=== PATIENT | female | born 1950 | race Caucasian/White ===

== ENCOUNTER 2021-11-07 05:24 | Day surgery (SDC) | payer MEDICARE, BC ==
[2021-11-01 17:22] LABS: BASOPHILS % (AUTO) 0.6 % (0-1); EOSINOPHILS # (AUTO) 0.1 X10'3 (0-0.9); EOSINOPHILS % (AUTO) 1.2 % (0-6); LYMPHOCYTES # (AUTO) 1.8 X10'3 (1.1-4.8); LYMPHOCYTES % (AUTO) 23.9 % (21-51); MEAN CORPUSCULAR HGB CONC 34.2 g/dL (33.0-36.5); MEAN CORPUSCULAR VOLUME 90.5 FL (78-98); MONOCYTES # (AUTO) 0.7 X10'3 (0-0.9); MONOCYTES % (AUTO) 9.1 % (2-12); NEUTROPHILS % (AUTO) 65.2 % (42-75); PRE OP HEMATOCRIT 42.2 % (35.0-45.0); PRE OP HEMOGLOBIN 14.4 g/dL (12.0-16.0); PRE OP PLATELET COUNT 279 X10'3 (140-440); RED BLOOD COUNT 4.66 X10'6 (4.20-5.60); RED CELL DISTRIBUTION WIDTH 14.8 % (11.5-14.5)
[2021-11-01 17:31] LABS: ALBUMIN 3.9 G/DL (3.4-5.0); ALBUMIN/GLOBULIN RATIO 1.1 (1.1-1.5); ALKALINE PHOSPHATASE 110 IU/L (46-116); BLOOD UREA NITROGEN 23 MG/DL (7-18); CALCIUM 9.5 MG/DL (8.5-10.1); CHLORIDE 105 MMOL/L (99-107); PRE OP ALT 27 U/L (30-65); PRE OP ANION GAP 10 (8-16); PRE OP AST 21 U/L (10-37); PRE OP BILIRUB, TOTAL 0.4 MG/DL (0.0-1.0); PRE OP GLUCOSE 99 MG/DL (70-104); PRE OP POTASSIUM 4.1 MMOL/L (3.4-5.1); PRE OP SODIUM 143 MMOL/L (135-145); TOTAL CARBON DIOXIDE 28.1 MMOL/L (24-32); TOTAL PROTEIN 7.6 G/DL (6.4-8.2); eGFR 55 ML/MIN
[~2021-11-07] VITALS: Ht 162.6 cm; Wt 106.1 kg
[2021-11-07] VITALS (21 sets, daily range): BP systolic 83–117; BP diastolic 44–68
[~2021-11-07 05:24] MED LIST: ALB0.5UD IH; APIX2.5T PO; BECL10.62 INH; BUDE10.2 INH; FLUT16SP26 NAS; MELO-102 PO
[2021-11-07] MEDS ORDERED: famotidine 20mg tablet PO ONE (05:30)
[2021-11-07] MEDS ORDERED: acetaminophen 325mg tablet PO ONE (05:30)
[2021-11-07] MEDS ORDERED: celeCOXIB 100mg capsule PO ONE (05:30)
[2021-11-07] MEDS ORDERED: cefazolin/dext.iso 2gm/50ml IV ONE (05:30)
[2021-11-07] MEDS ORDERED: vancomycin 1,500 MG in NS 300ml IV soln IV ONE (05:30)
[2021-11-07] MEDS ORDERED: gabapentin 300mg capsule PO ONE (05:30)
[2021-11-07] MEDS ORDERED: metoclopramide 5 mg/ml inj IV ONE (05:30)
[2021-11-07] MEDS ORDERED: oxyCODONE SR 10mg (sust. release) tab -2 tabs (20mg) PO ONE (05:30)
[2021-11-07] MEDS ORDERED: LIDOcaine 1% (10mg/ml) 2ml vial ONE (05:51)
[2021-11-07] MEDS: ringers solution, lacted 1,000 ML IV SCH ×2 (06:07→10:49)
[2021-11-07] MEDS ORDERED: albuterol 2.5 MG/3 ML nebule NEB PRN (06:35)
[2021-11-07] MEDS ORDERED: fluticasone nasal spray 16GM bottle NS PRN (06:35)
[2021-11-07] MEDS ORDERED: diphenhydrAMINE 25mg capsule PO PRN ×2 (06:35)
[2021-11-07] MEDS ORDERED: HYDROmorphone inj. 0.5 MG/0.5 ML DISP.SYRIN IV PRN (06:35)
[2021-11-07] MEDS ORDERED: HYDROmorphone 1 mg/ml syringe IV PRN (06:35)
[2021-11-07] MEDS ORDERED: acetaminophen 325mg tablet PO PRN (06:35)
[2021-11-07] MEDS ORDERED: bisacodyl 10mg suppository rectal RC PRN (06:35)
[2021-11-07] MEDS ORDERED: magnesium hydroxide 30ml (MOM) UD suspension PO PRN (06:35)
[2021-11-07] MEDS ORDERED: ketorolac trometh. 30mg/ml inj. ONE (06:37)
[2021-11-07] MEDS ORDERED: epiNEPHrine 1 mg/ml inj ONE (06:38)
[2021-11-07] MEDS ORDERED: vancomycin 1,000mg inj ONE (06:38)
[2021-11-07] MEDS ORDERED: cloNIDine hcl/PF 100mcg/ml inj ONE (06:38)
[2021-11-07] MEDS ORDERED: ROPIVAcaine 0.5% (5mg/ml) 30ml vial ONE ×3 (06:38→07:37)
[2021-11-07 06:53] LABS: APTT 25 SECONDS (22-32)
[2021-11-07] MEDS ORDERED: fentaNYL/PF 50MCG/1 ML 2ML syringe ONE (06:59)
[2021-11-07] MEDS ORDERED: MIDAZolam 1mg/ml 10ml vial ONE (07:00)
[2021-11-07] MEDS ORDERED: ringers solution, lacted 1,000 ML IV SCH (07:40)
[2021-11-07] MEDS ORDERED: hydrALAZINE 20mg/ml inj. IV PRN (07:40)
[2021-11-07] MEDS ORDERED: ondansetron/PF 4mg/2ml inj IV PRN (07:40)
[2021-11-07] MEDS ORDERED: HYDROmorphone/PF 0.2 MG/ML SYRINGE IV PRN ×2 (07:40)
[2021-11-07] MEDS ORDERED: fentaNYL/PF 50MCG/1 ML 2ML syringe IV PRN ×2 (07:40)
[2021-11-07] MEDS ORDERED: labetalol 20mg/4ml (5mg/ml) syringe IV PRN (07:40)
[2021-11-07] MEDS ORDERED: non-formulary drug (Beclomethasone Dipropionate (Qvar Redihaler) 2 PUFFS) INH SCH (08:00)
[2021-11-07] MEDS ORDERED: non-formulary drug (Budesonide/Formoterol Fumarate (Symbicort 160-4.5 Mcg Inhaler) 2 PUFFS INH SCH (08:00)
--- NOTE | 2021-11-07 09:05 | NUR ---
Received from OR via BED, accompanied by Anesthesiologist and report given by Anesthesiologist. PATIENT WAKING UP, NO S/S OF PAIN, V/S WNL, SCD ON, 20G TO LUE, JOLENE drsg to LEFT KNEE CDI W/ ONQ AT 2ML/HR. SENSATIONS T9
--- NOTE | 2021-11-07 09:53 | NUR ---
RECEIVED REPORT FROM ISA SALVADOR. AWAITING PATIENT ARRIVAL, ROOM IS READY.
[2021-11-07] MEDS ORDERED: ROPIVAcaine 0.2%/PF PUMP/bolus 545 ML ADDCANAL SCH (10:00)
[2021-11-07] MEDS ORDERED: ROPIVAcaine 0.2% (10 MG/5 ML) BOLUS INJECTION ADDCANAL PRN (10:00)
--- NOTE | 2021-11-07 10:05 | NUR ---
PATIENT a&ox4, denies PAIN, V/S WNL, SCD ON, 20G TO LUE, JOLENE drsg to LEFT KNEE CDI W/ ONQ AT 2ML/HR. SENSATIONS T9. taken to surgical with all belongings and hooked up to monitors in room and report given to rn who has taken over patient care.
--- NOTE | 2021-11-07 10:10 | NUR ---
PATIENT ARRIVED TO THE FLOOR. BP'S SOFT IN THE 90'S. LAB SUPPORT TECHNICIAN SAID THIS IS WHERE SHE HAS BEEN AT. ONQ SET TO 4.
[2021-11-07] MEDS: potassium cl 20mEq in 1/2 NS 1,000 ML IV SCH ×2 (10:50→14:53)
[2021-11-07] MEDS: apixaban 2.5mg tablet PO SCH ×2 (10:50→21:20)
[2021-11-07] MEDS: multivitamins, therapeutics tablet PO SCH (10:50)
[2021-11-07] MEDS: gabapentin 300mg capsule PO SCH ×3 (10:50→21:00)
[2021-11-07] MEDS: ascorbic acid 500mg tablet PO SCH ×2 (10:51→21:20)
[2021-11-07] MEDS ORDERED: tranexamic acid inj. 1,000 MG in 0.7% saline 100 ML PMX IV ONE (11:10)
[2021-11-07] MEDS ORDERED: tranexamic acid 1gm/0.7% sal. 100 ML IV ONE (12:00)
--- NOTE | 2021-11-07 12:05 | NUR ---
first dose of tranexamic acid to be given immediately after surgery was sent to OR. advised from pharmacy to give 1200 dose meant for 3hrs post op.
[2021-11-07] MEDS: albuterol 2.5 MG/3 ML nebule NEB SCH ×2 (15:00→20:15)
--- NOTE | 2021-11-07 16:05 | NUR ---
Telephone call to MD regarding cefazolin ordered and cephalexin allergy listed. He stated that patient received this already pre-operatively and it is okay to give.
[2021-11-07] MEDS: cefazolin/dext.iso 2gm/50ml 50 ML IV SCH (16:29)
[2021-11-07] MEDS: oxyCODONE/APAP 10/325mg tablet PO PRN ×2 (17:33→22:28)
--- NOTE | 2021-11-07 18:18 | NUR ---
Problems reprioritized. Patient report given, questions answered & plan of care reviewed with ISA Martínez.
[2021-11-07] MEDS: ondansetron/PF 4mg/2ml inj IV PRN (19:22)
[2021-11-07] MEDS: budesonide 0.5mg/2ml UD nebule IH SCH (20:15)
[2021-11-07] MEDS ORDERED: sennosides 8.6mg tablet PO SCH (21:00)
[2021-11-07] MEDS ORDERED: normal saline 1000ml 1,000 ML IV ONE (21:05)
[2021-11-08] VITALS: BP 88/42
[2021-11-08] MEDS: potassium cl 20mEq in 1/2 NS 1,000 ML IV SCH ×2 (01:08→06:35)
[2021-11-08] MEDS: cefazolin/dext.iso 2gm/50ml 50 ML IV SCH (01:08)
[2021-11-08] MEDS: albuterol 2.5 MG/3 ML nebule NEB SCH ×2 (03:00→09:00)
[2021-11-08] MEDS: oxyCODONE/APAP 10/325mg tablet PO PRN ×3 (03:06→13:43)
[2021-11-08 04:00] VITALS: BP 128/50
--- NOTE | 2021-11-08 06:18 | NUR ---
Patient in room [facility]. I have received report from Jay myers and had the opportunity to ask questions and assume patient care.
[2021-11-08 06:32] LABS: BASOPHILS % (AUTO) 0.3 % (0-1); EOSINOPHILS % (AUTO) 0.4 % (0-6); HEMATOCRIT 33.1 % (35.0-45.0); HEMOGLOBIN 11.1 g/dl (12.0-16.0); LYMPHOCYTES # (AUTO) 1.1 X10'3 (1.1-4.8); LYMPHOCYTES % (AUTO) 11.8 % (21-51); MEAN CORPUSCULAR HEMOGLOBIN 30.8 PG (27.0-31.0); MEAN CORPUSCULAR HGB CONC 33.5 g/dL (33.0-36.5); MONOCYTES % (AUTO) 10.4 % (2-12); NEUTROPHILS # (AUTO) 7.3 X10'3 (1.8-7.7); NEUTROPHILS % (AUTO) 77.1 % (42-75); PLATELET COUNT 202 X10'3 (140-440); WHITE BLOOD COUNT 9.5 X10'3 (4.5-11.0)
[2021-11-08] MEDS: apixaban 2.5mg tablet PO SCH (07:07)
[2021-11-08] MEDS: ascorbic acid 500mg tablet PO SCH (07:07)
[2021-11-08] MEDS: multivitamins, therapeutics tablet PO SCH (07:08)
[2021-11-08] MEDS: gabapentin 300mg capsule PO SCH ×2 (07:18→13:00)
[2021-11-08 07:53] LABS: ANION GAP 9 (8-16); CHLORIDE 110 MMOL/L (99-107); SODIUM 142 MMOL/L (135-145); TOTAL CARBON DIOXIDE 23.1 MMOL/L (24-32)
[2021-11-08 08:10] VITALS: BP 93/42
[2021-11-08] MEDS: budesonide 0.5mg/2ml UD nebule IH SCH (09:00)
[2021-11-08] MEDS: ondansetron/PF 4mg/2ml inj IV PRN (10:37)
--- NOTE | 2021-11-08 11:04 | NUR ---
called kj SONG due to pt having low bps 94/33. pt is not symptomatic and had low bps when she came in received a bolus yesterday. she is not on any bp medications. kj said to educate on drinking and being aware if feeling dizzy. will educate pt on this topic upon discharging.
[2021-11-08 14:07] VITALS: BP 94/33
--- NOTE | 2021-11-08 14:28 | NUR ---
pt is stable for discharge, all discharge info gone over with pt with no further questions, belongings sent with pt, iv dc and cannula intact, pt dressings were clean and dry, and new ON q ball was administered, pt left with family member in a private vehicle.
[2021-11-08] MEDS ORDERED: celeCOXIB 100mg capsule PO SCH (20:00)
== END 2021-11-08 14:24 | disposition home or self-care (01) ==
LOC: PAS 05:24 → SUR 3N 06:39 → PAS 11-08 14:24
PROVIDERS: ATTEND Orthopaedic Surgery
DX: M17.12 Unilateral primary osteoarthritis, left knee (principal); G89.18 Other acute postprocedural pain; M19.011 Primary osteoarthritis, right shoulder; M19.012 Primary osteoarthritis, left shoulder; M19.071 Primary osteoarthritis, right ankle and foot; M18.0 Bilateral primary osteoarthritis of first carpometacarpal joints; J45.909 Unspecified asthma, uncomplicated; E03.9 Hypothyroidism, unspecified; E66.01 Morbid (severe) obesity due to excess calories; Z68.41 Body mass index [BMI] 40.0-44.9, adult; Z20.822 Contact with and (suspected) exposure to COVID-19; Z79.01 Long term (current) use of anticoagulants; Z79.899 Other long term (current) drug therapy; Z88.5 Allergy status to narcotic agent; Z88.1 Allergy status to other antibiotic agents; Z87.19 Personal history of other diseases of the digestive system; Z98.890 Other specified postprocedural states; Z90.710 Acquired absence of both cervix and uterus; Z82.3 Family history of stroke
CPT/HCPCS: 27447; 36415; 64448; 71045; 73560; 76942; 80051; 80053; 82948; 84443; 85025; 85610; 85730; 86885; 86900; 86901; 87081; 93005; 94760; 97110; 97116; 97161; 97530; C1713; C1776; J0171; J0690; J0735; J1885; J2250; J2405; J2765; J2795; J3010; J3370; J3480; J3490; J7030; J7040; J7120; U0003; U0005; Z7506; Z7508; Z7512; A4215; A6449; A7000; G0378

== ENCOUNTER 2024-11-06 05:41 | Inpatient (IN) | payer MEDICARE, BC ==
[~2024-11-06] VITALS: Ht 162.6 cm; Wt 104.2 kg
[2024-11-06] VITALS (32 sets, daily range): BP systolic 96–125; BP diastolic 40–75; PULSE 54–118; RESP 11–24; TEMP 97.6–98.4; O2SAT 94–100
[2024-11-06] MEDS: ringers solution, lacted 1,000 ML IV SCH ×2 (06:18→12:33)
[2024-11-06] MEDS: famotidine 20mg tablet PO ONE (06:18)
[2024-11-06] MEDS: VANCOMYCIN 1,500MG inj. 1,500 MG in normal saline 500ml IV soln 300 ML IV ONE (06:19)
[2024-11-06] MEDS ORDERED: bacitracin 15gm ointment TP ONE (06:43)
[2024-11-06] MEDS ORDERED: BUPIVAcaine 2.5mg/ml inj 50ml vial (contains preservative) ONE (06:43)
[2024-11-06] MEDS ORDERED: MIDAZolam 1mg/ml 10ml vial ONE ×2 (07:17→08:14)
[2024-11-06] MEDS ORDERED: fentaNYL/PF 50MCG/1 ML 2ML syringe ONE (07:17)
[2024-11-06] MEDS ORDERED: LIDOcaine 2% (20mg/ml) 5ml vial ONE (07:41)
[2024-11-06] MEDS ORDERED: propofol inj 20 ML IV ONE ×3 (07:41)
[2024-11-06] MEDS ORDERED: ROPIVAcaine 0.5% (5mg/ml) 30ml vial ONE (07:42)
[2024-11-06] MEDS ORDERED: dexamethasone sod phosphate 4mg/ml inj. ONE (07:42)
[2024-11-06] MEDS ORDERED: ondansetron/PF 4mg/2ml inj IV PRN (08:15)
[2024-11-06] MEDS ORDERED: fentaNYL/PF 50MCG/1 ML 2ML syringe IV PRN ×2 (08:15)
[2024-11-06] MEDS ORDERED: labetalol 20mg/4ml (5mg/ml) syringe IV PRN (08:15)
[2024-11-06] MEDS ORDERED: enalaprilat dihydrate 2.5mg/2ml vial IV PRN (08:15)
[2024-11-06] MEDS: BUPIVAcaine 2.5mg/ml inj 50ml vial (contains preservative) SQ ONE (08:52)
[2024-11-06] MEDS ORDERED: diphenhydrAMINE 25mg capsule PO PRN ×2 (09:25)
[2024-11-06] MEDS ORDERED: magnesium hydroxide 30ml (MOM) UD suspension PO PRN (09:25)
[2024-11-06] MEDS ORDERED: bisacodyl 10mg suppository rectal RC PRN (09:25)
[2024-11-06] MEDS ORDERED: naloxone 0.4 mg/ml inj IV PRN (09:25)
[2024-11-06] MEDS ORDERED: fluticasone nasal spray 16GM bottle NS PRN (09:40)
[2024-11-06] MEDS ORDERED: albuterol 2.5 MG/3 ML nebule NEB PRN (09:40)
[2024-11-06] MEDS ORDERED: ipratropium/albuterol 3ml nebule NEB PRN (18:20)
[2024-11-06] MEDS: oxyCODONE/APAP 10/325mg tablet PO PRN ×2 (19:12→23:26)
[2024-11-06] MEDS: sennosides 8.6mg tablet PO SCH (20:39)
[2024-11-06] MEDS: ibuprofen 200mg tablet PO PRN (22:09)
[2024-11-07 06:38] LABS: BASOPHILS % (AUTO) 0.3 % (0-1); EOSINOPHILS # (AUTO) 0.1 X10'3 (0-0.9); EOSINOPHILS % (AUTO) 0.8 % (0-6); HEMATOCRIT 34.5 % (35.0-45.0); HEMOGLOBIN 11.7 g/dl (12.0-16.0); LYMPHOCYTES # (AUTO) 1.6 X10'3 (1.1-4.8); LYMPHOCYTES % (AUTO) 16.1 % (21-51); MEAN CORPUSCULAR HEMOGLOBIN 31.4 PG (27.0-31.0); MEAN CORPUSCULAR HGB CONC 33.8 g/dL (33.0-36.5); MEAN PLATELET VOLUME 10.4 FL (7.4-10.4); MONOCYTES # (AUTO) 0.8 X10'3 (0-0.9); MONOCYTES % (AUTO) 7.9 % (2-12); NEUTROPHILS # (AUTO) 7.3 X10'3 (1.8-7.7); NEUTROPHILS % (AUTO) 74.9 % (42-75); PLATELET COUNT 212 X10'3 (140-440); RED BLOOD COUNT 3.71 X10'6 (4.20-5.60); RED CELL DISTRIBUTION WIDTH 14.9 % (11.5-14.5); WHITE BLOOD COUNT 9.8 X10'3 (4.5-11.0)
[2024-11-07 07:02] LABS: ALANINE AMINOTRANSFERASE 15 U/L (12-78); ALBUMIN 2.9 G/DL (3.4-5.0); ALKALINE PHOSPHATASE 88 IU/L (46-116); ANION GAP 10 (8-16); ASPARTATE AMINO TRANSFERASE 6 U/L (10-37); BILIRUBIN,TOTAL 0.5 MG/DL (0.1-1.0); BLOOD UREA NITROGEN 20 MG/DL (7-18); BUN/CREATININE RATIO 22.2 (10.0-20.0); CALCIUM 8.7 MG/DL (8.5-10.1); CHLORIDE 107 MMOL/L (99-107); GLUCOSE 100 MG/DL (70-104); POTASSIUM 4.1 MMOL/L (3.5-5.1); SODIUM 141 MMOL/L (135-145); TOTAL CARBON DIOXIDE 24.4 MMOL/L (24-32); TOTAL PROTEIN 5.7 G/DL (6.4-8.2); eCRCL 49 ML/MIN; eGFR 62 ML/MIN
[2024-11-07 07:12] VITALS: BP 100/53; PULSE 53; RESP 18; TEMP 97.6; O2SAT 97
[2024-11-07] MEDS: budesonide 0.5mg/2ml UD nebule IH SCH (08:00)
[2024-11-07] MEDS: apixaban 2.5mg tablet PO SCH (08:17)
[2024-11-07] MEDS: MELOXICAM 7.5 MG TABLET PO SCH (08:17)
[2024-11-07] MEDS: normal saline 1000ml 1,000 ML IV SCH (10:50)
[2024-11-07] MEDS: CefTRIAXone 2gm/D5W 50ml BAG 50 ML IV ONE (10:55)
[2024-11-07] MEDS: ondansetron/PF 4mg/2ml inj IV PRN (10:58)
[2024-11-07 11:36] VITALS: BP 109/58; PULSE 45; RESP 16; TEMP 97.6; O2SAT 98
[2024-11-07] MEDS ORDERED: AMOX-419 PO (13:26)
[2024-11-07] MEDS ORDERED: FLUT1DIS4 INH (15:16)
[2024-11-08] MEDS ORDERED: CefTRIAXone 2gm/D5W 50ml BAG 50 ML IV SCH (08:00)
== END 2024-11-07 15:42 | disposition home health service (06) | DRG 494 ==
LOC: PAS 05:41 → PAS IN 09:31 → SUR 3N 13:46
PROVIDERS: ADMIT Podiatrist Foot & Ankle Surgery; ATTEND Podiatrist Foot & Ankle Surgery
PROC: 0MQQ0ZZ Repair Right Ankle Bursa and Ligament, Open Approach (ICD-10-PCS; 2024-11-06)
PROC: 0LQS0ZZ Repair Right Ankle Tendon, Open Approach (ICD-10-PCS; 2024-11-06)
PROC: 3E0T3BZ Introduction of Anesthetic Agent into Peripheral Nerves and Plexi, Percutaneous Approach (ICD-10-PCS; 2024-11-06)
PROC: 0LBS0ZZ Excision of Right Ankle Tendon, Open Approach (ICD-10-PCS; 2024-11-06)
PROC: 0SBF4ZZ Excision of Right Ankle Joint, Percutaneous Endoscopic Approach (ICD-10-PCS; principal; 2024-11-06 07:10)
DX: M77.51 Other enthesopathy of right foot and ankle (principal); S93.431A Sprain of tibiofibular ligament of right ankle, initial encounter; M25.374 Other instability, right foot; M76.71 Peroneal tendinitis, right leg; J45.909 Unspecified asthma, uncomplicated; M25.371 Other instability, right ankle; X58.XXXA Exposure to other specified factors, initial encounter; Z88.5 Allergy status to narcotic agent; Z88.8 Allergy status to other drugs, medicaments and biological substances; Z88.6 Allergy status to analgesic agent; Z88.1 Allergy status to other antibiotic agents; Z91.040 Latex allergy status; Z90.710 Acquired absence of both cervix and uterus; Y93.89 Activity, other specified; Y92.89 Other specified places as the place of occurrence of the external cause; Y99.8 Other external cause status
CPT/HCPCS: 36415; 73620; 76000; 80053; 82948; 85025; 87081; 93005; 94760; 97161; 97530; A4618; A6222; A6449; A7000; C1713; C1758; G0378; J1100; J2003; J2250; J2405; J2704; J2795; J3010; J3370; J3490; J7040; J7120